=== PATIENT | female | born 1995 | race Caucasian/White ===

== ENCOUNTER → 2020-01-05 | Outpatient (CLI) | payer OTHER ==
[~2020-01-05] VITALS: Ht 157.5 cm; Wt 58.6 kg
[~2020-01-05] MED LIST: MINO50CA3 PO
== END | disposition home or self-care (01) ==
LOC: STAR 09:00 → EDSTATUS 01-08 07:30
PROVIDERS: ATTEND Surgery
DX: Z01.812 Encounter for preprocedural laboratory examination (principal); U07.1 COVID-19; D48.62 Neoplasm of uncertain behavior of left breast
CPT/HCPCS: 36415; 87635

== ENCOUNTER 2020-01-29 09:35 | Day surgery (SDC) | payer OTHER ==
[~2020-01-29] VITALS: Ht 154.9 cm; Wt 58.9 kg
[2020-01-29 10:27] VITALS: BP 111/73
[2020-01-29] MEDS ORDERED: DIPHENHYDRAMINE 50 MG/ML, 1ML IVPush PRN (10:30)
[2020-01-29] MEDS ORDERED: HYDROmorphone 1 MG/ML, 1ML INJ IVPush PRN (10:30)
[2020-01-29] MEDS ORDERED: ONDANSETRON 2MG/ML, 2ML IVPush PRN (10:30)
[2020-01-29] MEDS ORDERED: MEPERIDINE/PF 25MG/0.5ML IVPush PRN (10:30)
[2020-01-29] MEDS ORDERED: CHLORHEXIDINE 15 ML UDC MM ONE (10:30)
[2020-01-29] MEDS ORDERED: DIAZEPAM 5 MG/ML, 2ML IVPush PRN (10:30)
[2020-01-29] MEDS ORDERED: SCOPOLAMINE 1MG PATCH TD SCH (10:30)
[2020-01-29] MEDS ORDERED: ACETAMINOPHEN 500 MG TABLET PO ONE (10:30)
[2020-01-29] MEDS ORDERED: PROMETHAZINE 25 MG/ML, 1ML IVPush PRN (10:30)
[2020-01-29] MEDS ORDERED: OXYcodone 5 MG/5 ML ORAL.SOL UDC PO PRN (10:30)
[2020-01-29] MEDS ORDERED: LACTATED RINGERS 1,000 ML IV SCH (10:30)
[2020-01-29] MEDS ORDERED: FENTANYL PF 100 MCG/2ML IV PRN (10:30)
[2020-01-29] MEDS ORDERED: FENTANYL PF 100 MCG/2ML ONE ×2 (10:32→12:42)
[2020-01-29] MEDS ORDERED: MIDAZOLAM 1 MG/ML, 2ML ONE (10:32)
[2020-01-29 10:53] LABS: HCG UR SG 1.008 (1.003-1.030)
[2020-01-29] MEDS ORDERED: SODIUM BICARBONATE 4.2%, 5ML ONE (10:59)
[2020-01-29] MEDS ORDERED: BUPIVACAINE/PF 0.5% ONE (10:59)
[2020-01-29] MEDS ORDERED: EPINEPHRINE 1 MG/ML, 1ML ONE (10:59)
[2020-01-29] MEDS ORDERED: LIDOCAINE 1%, 20ML ONE (10:59)
[2020-01-29] MEDS ORDERED: BUPIVACAINE/PF 0.25% ONE (11:00)
[2020-01-29] MEDS ORDERED: ISOSULFAN BLUE 10 MG/ML, 5ML IV ONE (11:04)
[2020-01-29] MEDS ORDERED: CEFAZOLIN 1,000 MG ONE (11:20)
[2020-01-29] MEDS ORDERED: DEXAMETHASONE 4 MG/ML, 1ML ONE (11:20)
[2020-01-29] MEDS ORDERED: PROPOFOL 10 MG/ML, 20ML ONE (11:20)
[2020-01-29] MEDS ORDERED: ONDANSETRON 2MG/ML, 2ML ONE (11:20)
[2020-01-29] MEDS ORDERED: OXYcodone 5 MG/5 ML ORAL.SOL UDC ONE (12:42)
== END 2020-01-29 16:30 | disposition home or self-care (01) ==
LOC: OUT 09:35
PROVIDERS: ATTEND Surgery
DX: N63.22 Unspecified lump in the left breast, upper inner quadrant (principal); Z20.828 Contact with and (suspected) exposure to other viral communicable diseases; D24.2 Benign neoplasm of left breast; Z79.899 Other long term (current) drug therapy
CPT/HCPCS: 19120; 36415; 81025; 87635; 88307; C1729; J0171; J0690; J1100; J2250; J2405; J2704; J3010; J7120; J3490